=== PATIENT | female | born 1970 | race Caucasian/White ===

== ENCOUNTER 2018-02-01 10:56 | Emergency (ER) | payer SELFPAY ==
[2018-02-01] MEDS ORDERED: methylPREDNISolone Sod Succ/PF 125 MG/2 ML VIAL ONE (11:34)
[2018-02-01] MEDS ORDERED: Metoclopramide HCl 10 MG/2 ML VIAL ONE (11:34)
[2018-02-01 11:49] LABS: #Basophils 0.1 thou/uL (0.0-0.2); #Eosinphils 0.7 thou/uL (0.0-0.7); #Lymphocytes 3.1 thou/uL (1.20-3.40); #Monocytes 0.5 thou/uL (0.11-0.59); #Neutrophils 3.9 thou/uL (1.40-6.50); %Basophils 0.9 % (0.0-1.0); %Eosinophils 8.4 % (0.0-10.0); %Lymphocytes 37.5 % (21.0-51.0); %Neutrophils 47.2 % (42.0-75.0); Hemoglobin 13.4 g/dL (12.0-16.0); Mean Corpuscular HGB CONC 35.8 g/dL (32.0-36.0); Mean Corpuscular Volume 83.9 fL (78.0-98.0); Mean Platelet Volume 7.3 fL (7.4-10.4); Platelet Count 242 thou/uL (130-400); RBC Distribution Width 11.2 % (11.5-14.5); Red Blood Cell (RBC) Count 4.45 mill/uL (4.20-5.40); White Blood Cell (WBC) Count 8.3 thou/uL (4.8-10.8)
--- NOTE | 2018-02-01 11:49 | CT ---
CT BRAIN WITHOUT CONTRAST: Date: 02-01-18 FINDINGS: The ventricles are normal in size with no shift. No intracranial bleeding was seen. There is no sign of mass, edema, or stroke. [place] white distinction is normal. The skull appears normal. The visible pa ranasal sinuses and mastoid air cells are clear. IMPRESSION: No acute intracranial finding. POS: HOME
[2018-02-01 11:54] LABS: Prothrombin Time 13.1 SEC (12.0-14.7)
[2018-02-01 12:01] LABS: ALT (SGPT) 45 U/L (8-55); AST (SGOT) 30 U/L (5-34); Albumin 4.4 g/dL (3.5-5.0); Alkaline Phosphatase 50 U/L (40-150); Anion Gap 15 mmol/L (10-20); BUN (Urea Nitrogen) 12 mg/dL (7.0-18.7); Bilirubin, Total 0.7 mg/dL (0.2-1.2); Calc. Creatinine Clearance 0 mL/min (70-130); Calcium 9.5 mg/dL (7.8-10.44); Carbon Dioxide 23 mmol/L (22-29); Chloride 106 mmol/L (98-107); Estimated GFR-MDRD 74; Globulin 3.2 g/dL (2.4-3.5); Glucose 104 mg/dL (70-105); Protein, Total 7.6 g/dL (6.0-8.3); Sodium 140 mmol/L (136-145)
== END 2018-02-01 12:15 | disposition home or self-care (01) ==
LOC: BURERS 10:56
DX: R51 Headache (principal); F17.210 Nicotine dependence, cigarettes, uncomplicated
CPT/HCPCS: 70450; 80053; 85025; 85610; 96374; 96375; J2765; J2930

== ENCOUNTER 2018-11-20 13:54 | Emergency (ER) | payer OTHER, SELFPAY | END 2018-11-20 14:10 | disposition home or self-care (01) | LOC: BURERS 13:54 | DX: T22.111A Burn of first degree of right forearm, initial encounter (principal); T23.151A Burn of first degree of right palm, initial encounter; F17.210 Nicotine dependence, cigarettes, uncomplicated; X10.0XXA Contact with hot drinks, initial encounter; Y92.69 Other specified industrial and construction area as the place of occurrence of the external cause | CPT/HCPCS: 99283 ==